=== PATIENT | male | born 1975 | race Caucasian/White ===

== ENCOUNTER 2016-07-23 22:48 | Emergency (ER) | payer SELFPAY ==
[2016-07-23] MEDS ORDERED: ZIPRASIDONE 20 MG INJ IM ONE (23:07)
[2016-07-23] MEDS ORDERED: HALOPERIDOL 5 MG/ML VIAL ONE ×2 (23:25→23:43)
[2016-07-23] MEDS ORDERED: LORAZEPAM 2 MG/ML VIAL ONE ×2 (23:26→23:43)
[2016-07-24] MEDS ORDERED: MULTIVITS ADULT INJ 10 ML, THIAMINE 100 MG, FOLIC ACID INJ 1 MG in SODIUM CHLORIDE 0.9%... IV ONE ×3 (01:50)
[2016-07-24] MEDS ORDERED: SODIUM CHLORIDE 0.9% 1,000 ML ONE (02:09)
== END 2016-07-24 07:45 | disposition home or self-care (01) ==
LOC: ER 22:48
DX: Z02.89 Encounter for other administrative examinations (principal); F43.24 Adjustment disorder with disturbance of conduct; R07.2 Precordial pain; S06.0X0A Concussion without loss of consciousness, initial encounter; F41.1 Generalized anxiety disorder; R06.4 Hyperventilation; F10.120 Alcohol abuse with intoxication, uncomplicated; Y90.7 Blood alcohol level of 200-239 mg/100 ml; F11.20 Opioid dependence, uncomplicated; R45.1 Restlessness and agitation
CPT/HCPCS: 36415; 70450; 71010; 74176; 80053; 80307; 80320; 80329; 81003; 82550; 83735; 84484; 85025; 85610; 85730; 96361; 96365; 96372; 96375; 96376

== ENCOUNTER 2016-07-24 11:50 | Emergency (ER) | payer SELFPAY | END 2016-07-24 13:31 | disposition left against medical advice (07) | LOC: ER 11:50 | DX: Z53.21 Procedure and treatment not carried out due to patient leaving prior to being seen by health care provider (principal) | CPT/HCPCS: 36415; 80053; 81003; 83690; 85025 ==

== ENCOUNTER 2016-07-25 11:43 | Emergency (ER) | payer SELFPAY ==
[2016-07-25] MEDS ORDERED: ONDANSETRON 4 MG VIAL ONE (13:10)
[2016-07-25] MEDS ORDERED: KETOROLAC 30 MG/ML VIAL ONE (13:11)
[2016-07-25] MEDS ORDERED: DILAUDID 1 MG/ML AMP ONE (13:11)
[2016-07-25] MEDS ORDERED: TRAMADOL 50 MG TAB ONE (17:20)
== END 2016-07-25 17:32 | disposition home or self-care (01) ==
LOC: ER 11:43
DX: R10.9 Unspecified abdominal pain (principal); M54.5 Low back pain; Z87.442 Personal history of urinary calculi; F17.200 Nicotine dependence, unspecified, uncomplicated
CPT/HCPCS: 74000; 81001; 87088; 96374; 96375